=== PATIENT | male | born 1980 | race Caucasian/White ===

== ENCOUNTER 2016-08-13 10:15 | Emergency (ER) | payer OTHER ==
[2016-08-13 10:25] VITALS: TEMP 98.8
[2016-08-13] MEDS ORDERED: IPRATROPIUM/ALBUTEROL 3 ML DEYVIAL IH ONE (11:20)
[2016-08-13] MEDS ORDERED: ACETAMINOPHEN 325 MG TAB PO ONE (11:22)
--- NOTE | 2016-08-13 11:26 | EDPHY ---
H & P Stated Complaint: Fever, productive cough, low O2 Time Seen by Provider: 08/13/16 10:50 HPI/ROS: CHIEF COMPLAINT: Cough, low oxygen saturations HISTORY OF PRESENT ILLNESS: 35-year-old developmentally delayed male presents to the emergency department with his mother sent from his primary care doctor's office with a 3 day history of sore throat, headache, nasal congestion and cough. 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 He was found to have room air oxygen saturations of 85%. Decreased appetite, cough is moist sounding but not productive. Patient has been taking DayQuil and NyQuil. Mother reports she has noticed labored breathing over the last few days. REVIEW OF SYSTEMS: A comprehensive 10 point review of systems is otherwise negative aside from elements mentioned in the history of present illness. Source: Patient, Family Exam Limitations: Other (developmentally delayed) - Personal History Current Tetanus/Diphtheria Vaccine: Yes Current Tetanus Diphtheria and Acellular Pertussis (TDAP): Yes - Medical/Surgical History Hx Asthma: No Hx Chronic Respiratory Disease: No Hx Diabetes: No Hx Cardiac Disease: No Hx Renal Disease: No Hx Cirrhosis: No Hx Alcoholism: No Hx HIV/AIDS: No Hx Splenectomy or Spleen Trauma: No Other PMH: DD, Gout - Social History Smoking Status: Never smoked Alcohol Use: None Drug Use: None - Physical Exam Exam: General: Alert, nontoxic. ENT: Tympanic membranes obscured by cerumen, external auditory canal, external ear and surrounding soft tissue including over the mastoid unremarkable. Nasopharynx is injected, there is rhinorrhea. Oropharynx with erythema. There is no exudate. No tonsillar hypertrophy. No asymmetry. The uvula is midline. No elevation of tongue. There is no hoarseness. No drooling, patient has good control of their oral secretions. No trismus. No stridor. Cardiac: Regular rate and rhythm. Respiratory: Diminished throughout expiratory wheezing throughout. Neurological: no meningismus. Skin: No rashes. Constitutional: Initial Vital Signs Temperature (C) 37.1 C 08/13/16 10:20 Heart Rate 89 08/13/16 10:20 Respiratory Rate 15 08/13/16 10:20 Blood Pressure 142/76 H 08/13/16 10:20 O2 Sat (%) 86 L 08/13/16 10:20 O2 Delivery Mode Nasal Cannula O2 (L/minute) 2 Allergies/Adverse Reactions: No Known Allergies Allergy (Unverified 08/13/16 10:19) Home Medications: Medication Instructions Recorded NK [No Known Home Meds] 08/13/16 Medical Decision Making - Diagnostics Imaging Results: Imaging Impressions Chest X-Ray 08/13/16 10:51 Impression: Negative chest. Imaging: I viewed and interpreted images myself ED Course/Re-evaluation: IV established, CBC, chemistry panel, D-dimer, chest x-ray obtained. Chest x-ray shows no evidence of pneumonia, CBC, chemistry panel are unremarkable, D-dimer is negative. Influenza is pending. Patient was given a DuoNeb, he continues needing 3 L of oxygen which keep his sats around 91%. 1515- room air trial with sats 85%. Pt is given IV fluids. He will be admitted to the hospitalist. This was discussed with the mother. She would like to stay with the patient in the hospital and does not think him being hospitalized will cause too much anxiety. I did discuss the option of him going home on oxygen with close follow up. Differential Diagnosis: Diagnosis considered but not limited to pneumonia, influenza, bronchitis, pulmonary embolism - Data Points Laboratory Results: Laboratory Results 08/13/16 12:19 08/13/16 12:19 08/13/16 08/13/16 08/13/16 12:19 12:19 12:19 WBC RBC Hgb Hct MCV MCH MCHC RDW Plt Count MPV Neut % (Auto) Lymph % (Auto) Grand % (Auto) Eos % (Auto) Baso % (Auto) Nucleat RBC Rel Count Absolute Neuts (auto) Absolute Lymphs (auto) Absolute Monos (auto) Absolute Eos (auto) Absolute Basos (auto) Absolute Nucleated RBC Immature Gran % Immature Gran # D-Dimer 0.35 ug/mLFEU ug/mLFEU (0.00-0.50) Sodium 141 mEq/L mEq/L (134-144) Potassium 4.4 mEq/L mEq/L (3.5-5.2) Chloride 105 mEq/L mEq/L (97-110) Carbon Dioxide 23 mEq/l mEq/l (22-31) Anion Gap 13 mEq/L mEq/L (8-16) BUN 12 mg/dL mg/dL (7-23) Creatinine 0.8 mg/dL mg/dL (0.7-1.3) Estimated GFR > 60 Glucose 98 mg/dL mg/dL (70-100) Calcium 9.7 mg/dL mg/dL (8.5-10.4) Influenza A & B (PCR) Pending 08/13/16 12:19 WBC 7.94 10^3/uL 10^3/uL (3.80-9.50) RBC 6.07 10^6/uL 10^6/uL (4.40-6.38) Hgb 16.6 g/dL g/dL (13.7-17.5) Hct 49.2 % % (40.0-51.0) MCV 81.1 fL L fL (81.5-99.8) MCH 27.3 pg L pg (27.9-34.1) MCHC 33.7 g/dL g/dL (32.4-36.7) RDW 12.6 % % (11.5-15.2) Plt Count 257 10^3/uL 10^3/uL (150-400) MPV 8.8 fL fL (8.7-11.7) Neut % (Auto) 76.0 % H % (39.3-74.2) Lymph % (Auto) 17.6 % % (15.0-45.0) Grand % (Auto) 4.7 % % (4.5-13.0) Eos % (Auto) 1.1 % % (0.6-7.6) Baso % (Auto) 0.1 % L % (0.3-1.7) Nucleat RBC Rel Count 0.0 % % (0.0-0.2) Absolute Neuts (auto) 6.03 10^3/uL 10^3/uL (1.70-6.50) Absolute Lymphs (auto) 1.40 10^3/uL 10^3/uL (1.00-3.00) Absolute Monos (auto) 0.37 10^3/uL 10^3/uL (0.30-0.80) Absolute Eos (auto) 0.09 10^3/uL 10^3/uL (0.03-0.40) Absolute Basos (auto) 0.01 10^3/uL L 10^3/uL (0.02-0.10) Absolute Nucleated RBC 0.00 10^3/uL 10^3/uL (0-0.01) Immature Gran % 0.5 % % (0.0-1.1) Immature Gran # 0.04 10^3/uL 10^3/uL (0.00-0.10) D-Dimer Sodium Potassium Chloride Carbon Dioxide Anion Gap BUN Creatinine Estimated GFR Glucose Calcium Influenza A & B (PCR) Medications Given: Discontinued Medications Acetaminophen (Tylenol) 650 mg PO EDNOW ONE Stop: 08/13/16 11:23 Last Admin: 08/13/16 12:01 Dose: 650 mg Albuterol/Ipratropium (Duoneb) 3 ml IH EDNOW ONE Stop: 08/13/16 11:21 Last Admin: 08/13/16 12:01 Dose: 3 ml Allopurinol (Allopurinol) 100 mg PO EDNOW ONE Stop: 08/13/16 12:31 Last Admin: 08/13/16 12:55 Dose: 100 mg Carbamide Peroxide (Debrox) 5 drop EACHEAR EDNOW ONE Stop: 08/13/16 11:29 Last Admin: 08/13/16 12:29 Dose: 5 drops Sodium Chloride (Ns) 1,000 mls @ 0 mls/hr IV ONCE ONE PRN Reason: Wide Open Stop: 08/13/16 13:22 Last Admin: 08/13/16 13:26 Dose: 1,000 mls Departure - Departure Disposition: [facility] Inpatient Acute Clinical Impression: Hypoxia Condition: Good Referrals: Jm Urena MD [Primary Care Provider] - As per Instructions
[2016-08-13] MEDS ORDERED: CARBAMIDE PEROXIDE 15 ML BOTTLE EACHEAR ONE (11:28)
[2016-08-13] MEDS ORDERED: ACETAMINOPHEN 650 MG/20.3 ML UDCUP ONE (11:37)
[2016-08-13] MEDS ORDERED: HYDROGEN PEROXIDE 236 ML BOTTLE TP ONE (12:00)
[2016-08-13] MEDS ORDERED: ALLOPURINOL 100 MG TAB PO ONE (12:30)
[2016-08-13 12:36] LABS: % IMMATURE GRANULYOCYTES 0.5 % (0.0-1.1); ABSOLUTE IMMATURE GRANULOCYTES 0.04 10^3/uL (0.00-0.10); ADD DIFF? NO; ADD MORPH? NO; ADD SCAN? NO; ATYPICAL LYMPHOCYTE FLAG 0 (0-99); FRAGMENT RBC FLAG 0 (0-99); HEMATOCRIT 49.2 % (40.0-51.0); HEMOGLOBIN 16.6 g/dL (13.7-17.5); LEFT SHIFT FLG 0 (0-99); LIPEMIA HEMOLYSIS FLAG 80 (0-99); MEAN CELL HEMOGLOBIN 27.3 pg (27.9-34.1); MEAN CELL HEMOGLOBIN CONCENTR. 33.7 g/dL (32.4-36.7); MEAN CELL VOLUME 81.1 fL (81.5-99.8); MEAN PLATELET VOLUME 8.8 fL (8.7-11.7); PLATELET CLUMPS FLAG 0 (0-99); PLATELET COUNT 257 10^3/uL (150-400); RED BLOOD CELL COUNT 6.07 10^6/uL (4.40-6.38); RED CELL DISTRIBUTION WIDTH 12.6 % (11.5-15.2)
[2016-08-13 12:50] LABS: ANION GAP 13 mEq/L (8-16); CALCIUM 9.7 mg/dL (8.5-10.4); CARBON DIOXIDE 23 mEq/l (22-31); CHLORIDE 105 mEq/L (97-110); CREATININE 0.8 mg/dL (0.7-1.3); GLOMERULAR FILTRATION RATE > 60; GLUCOSE 98 mg/dL (70-100); POTASSIUM 4.4 mEq/L (3.5-5.2); SODIUM 141 mEq/L (134-144)
[2016-08-13] MEDS ORDERED: NS 1,000 ML IV ONE ×2 (13:21)
[2016-08-13 14:20] VITALS: RESP 18; O2SAT 91
--- NOTE | 2016-08-13 15:24 | GCON ---
[f rep st] CONSULTATION HOSPITALIST CONSULTATION. DATE OF CONSULTATION: 08/13/2016 REFERRING PHYSICIAN: Cody Reyna MD REASON FOR CONSULTATION: Hypoxemia. HISTORY OF PRESENT ILLNESS: This is a 35-year-old male, with a history of developmental disability but no other medical problems, who came down with a sore throat, cough, and congestion on . On Monday he was feeling somewhat better. He has been taking DayQuil and NyQuil. 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 At his PCP office he was noted to have an oxygen saturation of 86% on room air. The patient denies any shortness of breath. He reports a nonproductive cough. He has had no fevers . He denies any chest pain. PAST MEDICAL HISTORY: 1. Developmental disability. 2. Gout. PAST SURGICAL HISTORY: None. HOME MEDICATIONS: Allopurinol. ALLERGIES: No known drug allergies. SOCIAL HISTORY: He lives with his mother in [place]. He denies any alcohol, tobacco, or illicit drug use. FAMILY HISTORY: Reviewed and noncontributory. REVIEW OF SYSTEMS: GENERAL: A comprehensive 10-point review of systems was done and is negative, e xcept for as mentioned in the HPI and below. GI: Patient's mother says that he is eating, but his appetite has been diminished. He has no nause a, vomiting or diarrhea. PHYSICAL EXAM: VITAL SIGNS: Blood pressure 147/82, pulse of 70, respiratory rate of 18, O2 saturat ion during the time of my visit was 90% on room air, but was documented to be 86% on room air on ini tial presentation, and 91% on 3 L at 1400. Temperature is afebrile. GENERAL: In no acute distress . HEENT: Head normocephalic, atraumatic. Eyes are PERRLA, sclerae anicteric. Mouth, moist mucous membranes, posterior oropharynx with mild injection and no exudate in the posterior oropharynx. NE CK: Supple, no lymphadenopathy. CARDIOVASCULAR: S1 and S2. No JVD. No lower extremity edema. P ULMONARY: Lungs are clear. No wheezes, rales, or rhonchi, normal respiratory effort. No signs of respiratory distress. ABDOMEN: Soft, nontender, nondistended. No guarding or rebound tenderness, normoactive bowel sounds. EXTREMITIES: No clubbing or cyanosis. NEUROLOGIC: Cranial nerves 2-12 grossly intact. No focal motor or sensory deficits. SKIN: Clear, no rashes. DRUG ALLERGIES: WBC 7.9, hemoglobin 16.6, hematocrit 49.2, platelets 257, D-dimer 0.35, sodium 141, potassium 4.4, chloride 105, CO2 of 23, BUN 12, creatinine 0.8, glucose 98. Influenza A and B was negative for flu by PCR. Chest x-ray, which I visualized and personally interpreted, was negative f or pneumonia. ASSESSMENT: This is a 35-year-old male with a history of developmental disability presenting with h ypoxemia, most likely due to upper airway congestion in the setting of viral upper respiratory infec tion. PLAN: I discussed treatment options with the patient and his mother. I offered hospital observatio n, but reassured them that outpatient treatment with close outpatient followup seems reasonable. I advised them to stop using NyQuil since this could possibly cause some sedation and hypoxemia. He w ill be set up for home oxygen to be needed to keep his oxygen saturation greater than 90%. Should a lso try an albuterol inhaler. Patient's mother understands that she should seek medical attention i f his oxygen saturations remain in the mid to low 80s, or if his overall condition is worsening. /[id number]/MODL
[2016-08-13 15:26] VITALS: BP 154/96; PULSE 78
== END 2016-08-13 16:13 | disposition home or self-care (01) ==
LOC: UNDOADMOB 13:33
PROC: 3E1B78Z Irrigation of Ear using Irrigating Substance, Via Natural or Artificial Opening (ICD-10-PCS; principal; 2016-08-13)
DX: R09.02 Hypoxemia (principal); H61.23 Impacted cerumen, bilateral